=== PATIENT | female | born 1975 | race Caucasian/White ===

== ENCOUNTER 2020-12-16 01:15 | Observation (INO) ==
[2020-12-16] MEDS ORDERED: 0.9 % Sodium Chloride 1,000 ML IVC ONE (01:33)
[2020-12-16 02:02] LABS: Hematocrit 30.2 % (35.3-44.9); Hemoglobin 10.1 g/dL (11.5-15.4); Mean Corpuscular HGB Conc 33.4 g/dL (31.6-35.5); Mean Corpuscular Hemoglobin 33.1 pg (28.0-33.3); Mean Platelet Volume 11.4 fL (9.4-12.4); Red Blood Count 3.05 M/mcL (3.82-4.97); Red Cell Distribution Width 20.9 % (11.5-14.5)
[2020-12-16 02:04] LABS: Platelet Count 96 K/mcL (140-400)
[2020-12-16 02:10] LABS: ABG Base Excess 0 mEq/L (-2 to 3); ABG HCO3 24 mEq/L (21-27); ABG Oxygen Saturation 95 % (95-98); ABG PCO2 37 mmHg (35-45); ABG PH 7.43 pH Units (7.32-7.45); ABG PO2 71 mmHg (85-104); ABG TCO2 26 mEq/L (20-26)
[2020-12-16 02:11] LABS: INR 1.8; Prothrombin Time 20.8 Seconds (9.4-12.1)
[2020-12-16 02:14] LABS: Activated Partial Thrombo Time 32.4 Seconds (26.0-36.0)
[2020-12-16 02:23] LABS: Alanine Aminotransferase 69 Units/L (7-52); Albumin 2.5 g/dL (3.5-5.7); Albumin/Globulin Ratio 0.7 (1.1-2.2); Alkaline Phosphatase 122 Units/L (34-104); Aspartate Amino Transferase 108 Units/L (13-39); BUN/Creatinine Ratio 20 (6-26); Bilirubin,Direct 1.2 mg/dL (0.0-0.2); Bilirubin,Indirect 1.7 mg/dL (0.0-1.0); Bilirubin,Total 2.9 mg/dL (0.3-1.0); Blood Urea Nitrogen 27 mg/dL (6-20); Calcium 8.4 mg/dL (8.6-10.3); Carbon Dioxide 25 mEq/L (23-29); Chloride 99 mEq/L (98-107); Ethanol < 10 mg/dL (Less than 10); Globulin 3.8 g/dL (2.4-3.5); Glucose 169 mg/dL (70-105); Osmolality,Calculated 285 (280-300); Potassium 3.7 mEq/L (3.5-5.1); Sodium 133 mEq/L (136-145); Total Protein 6.3 g/dL (6.4-8.9); eGFR For African Americans 50 (> 60); eGFR For Non-African Americans 41 (> 60)
[2020-12-16 02:28] LABS: Basophils # 0.2 K/mcL (0.0-0.2); Hypochromasia Present (Not Present); Lymphocytes # 2.2 K/mcL (0.6-4.6); Monocytes # 1.4 K/mcL (0.0-1.3); Neutrophils # 4.2 K/mcL (1.6-8.9)
[2020-12-16 02:29] LABS: Large Platelets Present (Not Present); Platelet Estimate Decreased (Normal); Smudge Cells Present (Not Present); Toxic Vacuolation Present (Not Present)
[2020-12-16 02:32] LABS: Poikilocytosis 1+ (Not Present)
[2020-12-16 02:33] LABS: Anisocytosis 2+ (Not Present)
[2020-12-16 02:49] LABS: Bilirubin,Urine Moderate (Negative); Blood,Urine Moderate (Negative); Color,Urine Dark Yellow (Yellow); Glucose,Urine (UA) 500 mg/dL (Normal); Ketones,Urine Negative (Negative); Leukocyte Esterase,Urine Negative (Negative); Nitrite,Urine Positive (Negative); Protein,Urine 30 mg/dL (Neg-Trace); Specific Gravity,Urine >= 1.030 (1.010-1.025); Urobilinogen,Urine Normal (Normal)
[2020-12-16 02:55] LABS: Clarity,Urine Cloudy (Clear)
[2020-12-16 02:57] LABS: Bacteria,Urine Many per hpf (None-Few); Mucus,Urine Many per lpf (None-Few); Squamous Epithelial Cell,Urine Many per hpf (None-Few)
[2020-12-16 03:00] LABS: Hyaline Casts,Urine Moderate per lpf (None Seen)
[2020-12-16 03:02] LABS: Amphetamine Screen,Urine Positive ng/mL (Cutoff=1000); Barbiturate Screen,Urine Negative ng/mL (Cutoff=200); Benzodiazepines Screen,Urine Negative ng/mL (Cutoff=200); Cannabinoid Screen,Urine Negative ng/mL (Cutoff = 50)
[2020-12-16 03:27] LABS: Cocaine Screen,Urine Negative ng/mL (Cutoff= 300); Opiate Screen,Urine Positive ng/mL (Cutoff=300); Phencyclidine Screen,Urine Negative ng/mL (Cutoff=25)
[2020-12-16] MEDS ORDERED: 0.9 % Sodium Chloride 500 ML IVC ONE (08:08)
[2020-12-16] MEDS ORDERED: MOM Conc 10 ML UD.LIQ PO PRN (08:09)
[2020-12-16] MEDS ORDERED: Naloxone 0.4 MG/ML INJ IVP PRN (08:09)
[2020-12-16] MEDS ORDERED: Ondansetron 4 MG/2 ML VIAL IVP PRN (08:09)
[2020-12-16] MEDS: ALOSETRON HCL 1 MG PO SCH ×2 (08:47→22:31)
[2020-12-16] MEDS ORDERED: 0.9 % Sodium Chloride 1,000 ML IVC SCH (09:45)
[2020-12-16] MEDS: Nicotine 14 MG PATCH.TD24 TD SCH (10:28)
[2020-12-16] MEDS: 0.9 % Sodium Chloride 1,000 ML IVC SCH ×2 (16:52→23:14)
[2020-12-16] MEDS: Mag Hydrox/Al Hydrox/Simeth 30 ML UDC PO PRN (20:40)
[2020-12-17] MEDS: 0.9 % Sodium Chloride 1,000 ML IVC SCH (05:30)
[2020-12-17] MEDS ORDERED: cefTRIAXone 2,000 MG in 0.9 % Sodium Chloride Mini Bag 100 ML IVPB SCH (06:00)
[2020-12-17 06:35] LABS: Basophils % 0.4 %; Eosinophils # 0.1 K/mcL (0.0-0.6); Eosinophils % 1.7 %; Hematocrit 29.5 % (35.3-44.9); Hemoglobin 9.8 g/dL (11.5-15.4); Immature Granulocytes % 0.4 % (0-4); Lymphocytes # 1.8 K/mcL (0.6-4.6); Lymphocytes % 35.5 %; Mean Corpuscular HGB Conc 33.2 g/dL (31.6-35.5); Mean Corpuscular Hemoglobin 32.8 pg (28.0-33.3); Mean Corpuscular Volume 98.7 fL (83.0-100.0); Mean Platelet Volume 12.3 fL (9.4-12.4); Monocytes # 0.9 K/mcL (0.0-1.3); Monocytes % 17.8 %; Neutrophils # 2.3 K/mcL (1.6-8.9); Red Blood Count 2.99 M/mcL (3.82-4.97); Red Cell Distribution Width 20.6 % (11.5-14.5); Segmented Neutrophils % 44.2 %; White Blood Count 5.2 K/mcL (4.3-11.1)
[2020-12-17 06:40] LABS: Platelet Count 69 K/mcL (140-400)
[2020-12-17 06:50] VITALS: BP 124/76
[2020-12-17 06:54] LABS: BUN/Creatinine Ratio 22 (6-26); Blood Urea Nitrogen 20 mg/dL (6-20); Calcium 7.2 mg/dL (8.6-10.3); Carbon Dioxide 24 mEq/L (23-29); Chloride 106 mEq/L (98-107); Glucose 157 mg/dL (70-105); Osmolality,Calculated 286 (280-300); Potassium 3.5 mEq/L (3.5-5.1); Sodium 135 mEq/L (136-145); eGFR For African Americans > 60 (> 60); eGFR For Non-African Americans > 60 (> 60)
[2020-12-17] MEDS: Nicotine 14 MG PATCH.TD24 TD SCH (08:46)
[2020-12-17] MEDS: ALOSETRON HCL 1 MG PO SCH (08:46)
[2020-12-17] MEDS: Mag Hydrox/Al Hydrox/Simeth 30 ML UDC PO PRN (08:49)
== END 2020-12-17 10:36 | disposition home or self-care (01) ==
LOC: INPPIK 01:15 → EMEROOPIK 01:15 → INPPIK 07:58
PROVIDERS: ADMIT Family Medicine; ATTEND Family Medicine